=== PATIENT | female | born 1945 | race Caucasian/White ===

== ENCOUNTER 2016-11-19 04:11 | Inpatient (IN) | payer OTHER ==
[~2016-11-19] VITALS: Ht 157.5 cm; Wt 53.9 kg
[2016-11-19] MEDS ORDERED: PROPOFOL 1000 MG/ISO-OSM 100 ML IV PRN ×3 (04:23→16:00)
[2016-11-19] MEDS ORDERED: PROPOFOL 1000 MG/ISO-OSM 100 ML IV ONE ×3 (04:24→15:51)
[2016-11-19] MEDS ORDERED: VECURONIUM BROMIDE 10 MG/VIAL IVP ONE (04:30)
[2016-11-19] MEDS ORDERED: ETOMIDATE 2 MG/ML 10 ML VIAL IVP ONE (04:30)
[2016-11-19] MEDS ORDERED: ASPIRIN 81 MG CHEWABLE TABLET PO ONE (04:30)
[2016-11-19] MEDS ORDERED: NITROGLYCERIN 2% (1 GM=INCH) PACKET TP ONE (04:46)
[2016-11-19] MEDS ORDERED: LINA1TAB5 PO (04:50)
[2016-11-19] MEDS ORDERED: ATOR80TA PO (04:50)
[2016-11-19] MEDS ORDERED: OMEP20 PO (04:50)
[2016-11-19] MEDS ORDERED: BISO5TAB26 PO (04:50)
[2016-11-19] MEDS ORDERED: ASPI81 PO (04:50)
[2016-11-19] MEDS ORDERED: CLOP75 PO (04:50)
[2016-11-19] MEDS ORDERED: LISI-662 PO (04:50)
[2016-11-19] MEDS ORDERED: [UNRECOGNIZED DRUG - CODE] TP (04:50)
[2016-11-19] MEDS ORDERED: [UNRECOGNIZED DRUG - CODE] PO (04:50)
[2016-11-19] MEDS ORDERED: LABETALOL HCL 200 MG in DEXTROSE 5%-WATER 160 ML IV PRN ×2 (05:04→05:13)
[2016-11-19 05:05] LABS: ANION GAP 16 mmol/L (8-16); CALCIUM, TOTAL 9.5 mg/dL (8.8-10.5); CARBON DIOXIDE 20 mmol/L (22-29); CHLORIDE 103 mmol/L (98-107); CREATININE 1.22 mg/dL (0.60-1.30); GLOMERULAR FILTR. RATE CALC 44 mL/min (>60); POTASSIUM 4.9 mmol/L (3.5-5.1); SODIUM SERUM 139 mmol/L (136-145); UREA NITROGEN, BLOOD 21 mg/dL (7-18)
[2016-11-19 05:11] LABS: ALANINE AMINOTRANSFERASE 20 U/L (12-78); ASPARTATE AMINOTRANSFERASE 13 U/L (15-37); BILIRUBIN,TOTAL 0.2 mg/dL (0.1-1.0); CREATINE KINASE, TOTAL 67 U/L (26-192); TOTAL PROTEIN, SERUM 8.6 g/dL (6.4-8.2)
[2016-11-19 05:15] LABS: BASOPHILS % (AUTO) 0.5 % (0.0-2.0); EOSINOPHILS % (AUTO) 1.43 % (1.0-6.0); HEMOGLOBIN 15.5 g/dL (12.0-16.0); LYMPHOCYTES # (AUTO) 12.4 K/uL (1.0-4.8); LYMPHOCYTES % (AUTO) 58.8 % (22.0-44.0); MEAN CORPUSCULAR HGB CONC 32.3 G/dL (31.0-37.0); MEAN CORPUSCULAR VOLUME 90 fL (80-100); MONOCYTES # (AUTO) 1.5 K/uL (0.1-1.0); NEUTROPHILS # (AUTO) 6.8 K/uL (1.8-7.7); NEUTROPHILS % (AUTO) 32.3 % (40.0-70.0); RED BLOOD CELL COUNT(AUTO) 5.35 MIL/uL (4.00-5.20); RED CELL DISTRIBUTION WIDTH 16.1 % (11.5-14.5)
[2016-11-19 05:16] LABS: GLUCOSE,POINT OF CARE 433 MG/DL (70-110)
[2016-11-19 05:17] LABS: WHITE BLOOD COUNT (AUTO) 23.5 K/uL (4.5-11.0)
[2016-11-19 05:22] LABS: ABG OXYHEMOGLOBIN 93.5 % (94.0-100.0)
[2016-11-19 05:25] LABS: ABG A-A DIFF O2 552.5 mmHg (10-20.0); ABG BASE EXCESS -13.3 mmol/L (-2.0-3.0); ABG HCO3 14.2 mmol/L (22.0-26.0); ABG PCO2 53 mmHg (35-45); TEMPERATURE, FAHRENHEIT, BG 98.6 FAHREN (96.0-98.6)
[2016-11-19 05:26] LABS: ABG PH 7.106 (7.35-7.450)
[2016-11-19] MEDS ORDERED: CefTRIAXone 1 GM/DEXTROSE 50 ML IV ONE (05:30)
[2016-11-19] MEDS ORDERED: AZITHROMYCIN 500 MG/NS 250 ML IV ONE (05:30)
[2016-11-19 05:34] LABS: PLATELET COUNT (AUTO) 151 K/uL (150-450)
[2016-11-19] MEDS ORDERED: SODIUM BICARBONATE [ADULT] 8.4% 50 MEQ/50 ML SYRINGE IVP ONE ×2 (05:37→05:45)
[2016-11-19 05:40] LABS: B-TYPE NATRIURETIC PEPTIDE 2640 pg/mL (0-100)
[2016-11-19] MEDS ORDERED: INSULIN REGULAR, HUMAN 100 UNITS/ML IVP ONE (06:15)
[2016-11-19] MEDS ORDERED: FUROSEMIDE 40 MG/4 ML VIAL IVP ONE (06:15)
[2016-11-19] MEDS ORDERED: SODIUM CHLORIDE 0.9% 1,000 ML IV ONE ×2 (06:15→09:00)
[2016-11-19 06:18] LABS: GLUCOSE COMMENT 1 Repeated; GLUCOSE,POINT OF CARE 340 MG/DL (70-110)
[2016-11-19 06:42] LABS: GLUCOSE COMMENT 1 Doctor Notified; GLUCOSE,POINT OF CARE 306 MG/DL (70-110)
[2016-11-19 06:43] LABS: LACTIC ACID 5.8 mmol/L (0.4-2.0)
[2016-11-19] MEDS ORDERED: DEXTROSE 50%-WATER 25 GM/50 ML SYRINGE IVP PRN (07:45)
[2016-11-19] MEDS ORDERED: PHENYLEPHRINE 200 MG/D5%-WATER 250 ML IV PRN (07:45)
[2016-11-19] MEDS ORDERED: BISACODYL 10 MG RECTAL RECTAL SUPPOSITORY PR PRN (07:45)
[2016-11-19] MEDS ORDERED: MAGNESIUM HYDROXIDE SUSPENSION 30 ML UDCUP PO PRN (07:45)
[2016-11-19 07:54] LABS: REFLEX LACTIC ACID? YES YES
[2016-11-19] MEDS: HEPARIN SODIUM,PORCINE 5,000 UNITS/ML VIAL SQ SCH ×2 (08:09→16:00)
[2016-11-19] MEDS ORDERED: DOPamine HCL 400 MG/D5%-WATER 250 ML IV ONE (09:11)
[2016-11-19] MEDS: FUROSEMIDE 40 MG/4 ML VIAL IVP SCH ×2 (09:14→19:58)
[2016-11-19] MEDS: PANTOPRAZOLE SODIUM 40 MG/VIAL IVP SCH (09:14)
[2016-11-19] MEDS: DOPamine HCL 400 MG/D5%-WATER 250 ML IV SCH (09:19)
[2016-11-19] MEDS: ASPIRIN 81 MG CHEWABLE TABLET PO SCH (09:20)
[2016-11-19] MEDS: DOCUSATE SODIUM 100 MG CAPSULE PO SCH ×2 (09:20→19:58)
[2016-11-19 10:22] LABS: GLUCOSE COMMENT 1 Repeated; GLUCOSE,POINT OF CARE 99 MG/DL (70-110)
[2016-11-19] MEDS ORDERED: ACETAMINOPHEN 650 MG RECTAL SUPPOSITORY PR ONE (10:30)
[2016-11-19] MEDS: ACETAMINOPHEN 325 MG TABLET PO PRN ×2 (10:50→19:58)
[2016-11-19 13:15] LABS: ABG A-A DIFF O2 391.3 mmHg (10-20.0); ABG BASE EXCESS -1.2 mmol/L (-2.0-3.0); ABG OXYHEMOGLOBIN 98.4 % (94.0-100.0); ABG PCO2 25 mmHg (35-45); ABG PH 7.545 (7.35-7.450)
[2016-11-19 13:16] LABS: ALLEN TEST, BLOOD GAS Positive
[2016-11-19 13:27] LABS: GLUCOSE,POINT OF CARE 116 MG/DL (70-110)
[2016-11-19] MEDS ORDERED: LORazepam 2 MG/ML VIAL IVP ONE (13:30)
[2016-11-19] MEDS ORDERED: LORazepam 2 MG/ML VIAL ONE (13:33)
[2016-11-19] MEDS ORDERED: IBUPROFEN 100 MG/5 ML SUSPENSION UDCUP PO ONE (14:15)
[2016-11-19 15:28] LABS: APPEARANCE,URINE CLEAR (CLEAR); GLUCOSE, URINE (UA) 100 mg/dL (NEGATIVE); KETONES,URINE NEGATIVE (NEGATIVE); LEUKOCYTE ESTERASE ,URINE NEGATIVE (NEGATIVE); OCCULT BLOOD,URINE NEGATIVE (NEGATIVE); PH,URINE 5.5 (5.0-8.0); PROTEIN,URINE NEGATIVE (NEGATIVE)
[2016-11-19 15:29] LABS: ADD UA MICROSCOPIC YES; RBC,URINE None Seen /HPF (0-2); SQUAMOUS EPITHELIAL CELL,UR Few /LPF (None Seen); WBC,URINE 0-2 /HPF (0-5)
[2016-11-19 15:38] LABS: GLUCOSE,POINT OF CARE 127 MG/DL (70-110)
[2016-11-19] MEDS: PROPOFOL 1000 MG/ISO-OSM 100 ML IV PRN (16:00)
[2016-11-19 17:57] LABS: ABG A-A DIFF O2 86.8 mmHg (10-20.0); ABG BASE EXCESS -0.9 mmol/L (-2.0-3.0); ABG OXYHEMOGLOBIN 94.5 % (94.0-100.0); ABG PCO2 38 mmHg (35-45); ABG PH 7.413 (7.35-7.450)
[2016-11-19 17:58] LABS: ALLEN TEST, BLOOD GAS Positive
[2016-11-19] MEDS ORDERED: SODIUM CHLORIDE 0.9% 250 ML IV ONE (19:52)
[2016-11-19 20:00] VITALS: BP 111/69
[2016-11-20] VITALS: BP 131/68
[2016-11-20] MEDS: HEPARIN SODIUM,PORCINE 5,000 UNITS/ML VIAL SQ SCH ×3 (00:28→16:16)
[2016-11-20] MEDS: ACETAMINOPHEN 325 MG TABLET PO PRN ×3 (01:15→19:24)
[2016-11-20 04:00] VITALS: BP 114/71
[2016-11-20] MEDS: CefTRIAXone 1 GM/DEXTROSE 50 ML IV SCH (05:21)
[2016-11-20] MEDS: PROPOFOL 1000 MG/ISO-OSM 100 ML IV PRN ×2 (05:43→17:02)
[2016-11-20] MEDS: AZITHROMYCIN 500 MG/NS 250 ML IV SCH (05:44)
[2016-11-20 06:28] LABS: BASOPHILS % (AUTO) 0.4 % (0.0-2.0); EOSINOPHILS % (AUTO) 0.2 % (1.0-6.0); HEMATOCRIT 41.6 % (36-46); HEMOGLOBIN 13.2 g/dL (12.0-16.0); LYMPHOCYTES # (AUTO) 4.3 K/uL (1.0-4.8); LYMPHOCYTES % (AUTO) 24.6 % (22.0-44.0); MEAN CORPUSCULAR HEMOGLOBIN 27.9 pg (26.0-34.0); MEAN CORPUSCULAR HGB CONC 31.7 G/dL (31.0-37.0); MEAN CORPUSCULAR VOLUME 88 fL (80-100); MONOCYTES # (AUTO) 1.6 K/uL (0.1-1.0); MONOCYTES % (AUTO) 9.3 % (2.0-9.0); NEUTROPHILS # (AUTO) 11.6 K/uL (1.8-7.7); NEUTROPHILS % (AUTO) 65.5 % (40.0-70.0); PLATELET COUNT (AUTO) 126 K/uL (150-450); RED BLOOD CELL COUNT(AUTO) 4.73 MIL/uL (4.00-5.20); RED CELL DISTRIBUTION WIDTH 16.6 % (11.5-14.5); WHITE BLOOD COUNT (AUTO) 17.6 K/uL (4.5-11.0)
[2016-11-20 06:50] LABS: ALBUMIN 3.3 g/dL (3.4-5.0); BILIRUBIN,TOTAL 0.4 mg/dL (0.1-1.0); CALCIUM, TOTAL 8.5 mg/dL (8.8-10.5); CREATININE 0.97 mg/dL (0.60-1.30); MAGNESIUM 1.7 mg/dL (1.80-2.40); PHOSPHORUS 4.4 mg/dL (2.5-4.9); POTASSIUM 3.3 mmol/L (3.5-5.1); TOTAL PROTEIN, SERUM 7.1 g/dL (6.4-8.2)
[2016-11-20 07:34] LABS: THYROID STIMULATING HORMONE 0.22 uIU/mL (0.36-3.74)
[2016-11-20 08:00] VITALS: BP 104/64
[2016-11-20] MEDS ORDERED: POTASSIUM CHLORIDE 20 MEQ ER TABLET PO PRN (08:00)
[2016-11-20] MEDS ORDERED: MAGNESIUM SULFATE 2 GM in DEXTROSE 5%-WATER 50 ML IV ONE (08:00)
[2016-11-20] MEDS: ASPIRIN 81 MG CHEWABLE TABLET PO SCH (09:01)
[2016-11-20] MEDS: DOCUSATE SODIUM 100 MG CAPSULE PO SCH ×2 (09:01→20:14)
[2016-11-20] MEDS: PANTOPRAZOLE SODIUM 40 MG/VIAL IVP SCH (09:01)
[2016-11-20] MEDS: FUROSEMIDE 40 MG/4 ML VIAL IVP SCH ×2 (09:02→20:14)
[2016-11-20] MEDS: DOPamine HCL 400 MG/D5%-WATER 250 ML IV SCH (10:07)
[2016-11-20 11:29] LABS: ABG A-A DIFF O2 83.3 mmHg (10-20.0); ABG BASE EXCESS 3.2 mmol/L (-2.0-3.0); ABG HCO3 27.3 mmol/L (22.0-26.0); ABG OXYHEMOGLOBIN 95.4 % (94.0-100.0); ABG PCO2 39 mmHg (35-45); ABG PH 7.456 (7.35-7.450); ALLEN TEST, BLOOD GAS Positive; TEMPERATURE, FAHRENHEIT, BG 100.1 FAHREN (96.0-98.6)
[2016-11-20 12:00] VITALS: BP 110/72
[2016-11-20 13:35] LABS: PROTHROMBIN TIME 10.6 SEC (9.4-11.6)
[2016-11-20 16:00] VITALS: BP 126/77
[2016-11-20] MEDS ORDERED: SODIUM CHLORIDE 0.9% 250 ML IV ONE (17:53)
[2016-11-20 20:00] VITALS: BP 109/67
[2016-11-21] VITALS: BP 97/61
[2016-11-21] MEDS ORDERED: SODIUM CHLORIDE 0.9% 250 ML IV ONE (00:08)
[2016-11-21] MEDS: HEPARIN SODIUM,PORCINE 5,000 UNITS/ML VIAL SQ SCH ×4 (00:12→23:56)
[2016-11-21] MEDS: ACETAMINOPHEN 325 MG TABLET PO PRN ×2 (00:14→22:13)
[2016-11-21 04:00] VITALS: BP 101/57
[2016-11-21] MEDS ORDERED: PNEUMOCOCCAL VACCINE POLYVALENT 0.5 ML VIAL [PPSV23] IM ONE (04:45)
[2016-11-21] MEDS: CefTRIAXone 1 GM/DEXTROSE 50 ML IV SCH (04:59)
[2016-11-21] MEDS: AZITHROMYCIN 500 MG/NS 250 ML IV SCH (05:00)
[2016-11-21 05:21] LABS: BASOPHILS % (AUTO) 0.4 % (0.0-2.0); EOSINOPHILS % (AUTO) 0.8 % (1.0-6.0); HEMATOCRIT 36.2 % (36-46); HEMOGLOBIN 11.5 g/dL (12.0-16.0); LYMPHOCYTES # (AUTO) 2.6 K/uL (1.0-4.8); LYMPHOCYTES % (AUTO) 19.7 % (22.0-44.0); MEAN CORPUSCULAR HEMOGLOBIN 28.1 pg (26.0-34.0); MEAN CORPUSCULAR HGB CONC 31.8 G/dL (31.0-37.0); MEAN CORPUSCULAR VOLUME 88 fL (80-100); MONOCYTES # (AUTO) 1.3 K/uL (0.1-1.0); MONOCYTES % (AUTO) 9.4 % (2.0-9.0); NEUTROPHILS # (AUTO) 9.3 K/uL (1.8-7.7); NEUTROPHILS % (AUTO) 69.7 % (40.0-70.0); PLATELET COUNT (AUTO) 115 K/uL (150-450); RED CELL DISTRIBUTION WIDTH 16.4 % (11.5-14.5); WHITE BLOOD COUNT (AUTO) 13.4 K/uL (4.5-11.0)
[2016-11-21 05:49] LABS: BILIRUBIN,TOTAL 0.4 mg/dL (0.1-1.0); CALCIUM, TOTAL 8.7 mg/dL (8.8-10.5); CREATININE 1.14 mg/dL (0.60-1.30); MAGNESIUM 2.1 mg/dL (1.80-2.40); POTASSIUM 3.5 mmol/L (3.5-5.1); TOTAL PROTEIN, SERUM 6.7 g/dL (6.4-8.2)
[2016-11-21] MEDS: PROPOFOL 1000 MG/ISO-OSM 100 ML IV PRN (07:36)
[2016-11-21 07:46] LABS: HEMOGLOBIN A1C 5.9 % (4.5-6.2)
[2016-11-21 08:00] VITALS: BP 106/64
[2016-11-21] MEDS: DOPamine HCL 400 MG/D5%-WATER 250 ML IV SCH (09:08)
[2016-11-21] MEDS: PANTOPRAZOLE SODIUM 40 MG/VIAL IVP SCH (09:15)
[2016-11-21] MEDS: DOCUSATE SODIUM 100 MG CAPSULE PO SCH ×2 (09:15→20:45)
[2016-11-21] MEDS: ASPIRIN 81 MG CHEWABLE TABLET PO SCH (09:15)
[2016-11-21] MEDS: METOCLOPRAMIDE HCL 5 MG/ML 2 ML VIAL IVP SCH ×2 (09:15→21:56)
[2016-11-21] MEDS: FUROSEMIDE 40 MG/4 ML VIAL IVP SCH ×2 (09:16→21:55)
[2016-11-21] MEDS: POTASSIUM CHL 10 MEQ/WATER 50 ML IV PRN ×2 (09:16→12:23)
[2016-11-21 09:56] LABS: ABG A-A DIFF O2 80.6 mmHg (10-20.0); ABG BASE EXCESS 3.7 mmol/L (-2.0-3.0); ABG HCO3 27.7 mmol/L (22.0-26.0); ABG OXYHEMOGLOBIN 95.9 % (94.0-100.0); ABG PCO2 39 mmHg (35-45); ABG PH 7.469 (7.35-7.450); ALLEN TEST, BLOOD GAS Positive; TEMPERATURE, FAHRENHEIT, BG 100.3 FAHREN (96.0-98.6)
[2016-11-21 11:50] LABS: ABG A-A DIFF O2 93.3 mmHg (10-20.0); ABG BASE EXCESS 4.3 mmol/L (-2.0-3.0); ABG HCO3 28.4 mmol/L (22.0-26.0); ABG OXYHEMOGLOBIN 95.1 % (94.0-100.0); ABG PCO2 36 mmHg (35-45); ABG PH 7.501 (7.35-7.450); ALLEN TEST, BLOOD GAS Positive; TEMPERATURE, FAHRENHEIT, BG 98.6 FAHREN (96.0-98.6)
[2016-11-21 12:00] VITALS: BP 125/68
[2016-11-21 13:51] LABS: ABG A-A DIFF O2 93.3 mmHg (10-20.0); ABG BASE EXCESS 4.6 mmol/L (-2.0-3.0); ABG HCO3 28.5 mmol/L (22.0-26.0); ABG OXYHEMOGLOBIN 96.3 % (94.0-100.0); ABG PCO2 38 mmHg (35-45); ABG PH 7.489 (7.35-7.450); ALLEN TEST, BLOOD GAS Positive; TEMPERATURE, FAHRENHEIT, BG 99.7 FAHREN (96.0-98.6)
[2016-11-21 15:18] LABS: GLUCOSE,POINT OF CARE 113 MG/DL (70-110)
[2016-11-21 16:00] VITALS: BP 132/56
[2016-11-21 20:00] VITALS: BP 135/66
[2016-11-22] VITALS (7 sets, daily range): BP systolic 108–131; BP diastolic 59–72
[2016-11-22] MEDS ORDERED: SODIUM CHLORIDE 0.9% 250 ML IV ONE (00:20)
[2016-11-22] MEDS: CefTRIAXone 1 GM/DEXTROSE 50 ML IV SCH (04:37)
[2016-11-22 05:03] LABS: GLUCOSE,POINT OF CARE 143 MG/DL (70-110)
[2016-11-22 05:03] LABS: GLUCOSE,POINT OF CARE 117 MG/DL (70-110)
[2016-11-22] MEDS: AZITHROMYCIN 500 MG/NS 250 ML IV SCH (05:09)
[2016-11-22 05:26] LABS: BASOPHILS # (AUTO) 0.03 K/uL (0.00-0.20); BASOPHILS % (AUTO) 0.2 % (0.0-2.0); EOSINOPHILS # (AUTO) 0.07 K/uL (0.00-0.70); HEMATOCRIT 36.8 % (36-46); HEMOGLOBIN 12.1 g/dL (12.0-16.0); LYMPHOCYTES # (AUTO) 2.2 K/uL (1.0-4.8); LYMPHOCYTES % (AUTO) 16.7 % (22.0-44.0); MEAN CORPUSCULAR HEMOGLOBIN 29.1 pg (26.0-34.0); MEAN CORPUSCULAR VOLUME 88 fL (80-100); MONOCYTES # (AUTO) 1.3 K/uL (0.1-1.0); MONOCYTES % (AUTO) 9.8 % (2.0-9.0); NEUTROPHILS # (AUTO) 9.6 K/uL (1.8-7.7); NEUTROPHILS % (AUTO) 72.8 % (40.0-70.0); PLATELET COUNT (AUTO) 125 K/uL (150-450); RED BLOOD CELL COUNT(AUTO) 4.17 MIL/uL (4.00-5.20); RED CELL DISTRIBUTION WIDTH 15.7 % (11.5-14.5); WHITE BLOOD COUNT (AUTO) 13.2 K/uL (4.5-11.0)
[2016-11-22 05:31] LABS: CREATININE 1.05 mg/dL (0.60-1.30); POTASSIUM 3.5 mmol/L (3.5-5.1)
[2016-11-22 07:17] LABS: GLUCOSE,POINT OF CARE 109 MG/DL (70-110)
[2016-11-22] MEDS: HEPARIN SODIUM,PORCINE 5,000 UNITS/ML VIAL SQ SCH ×2 (09:03→16:40)
[2016-11-22] MEDS: PANTOPRAZOLE SODIUM 40 MG/VIAL IVP SCH (09:04)
[2016-11-22] MEDS: FUROSEMIDE 40 MG/4 ML VIAL IVP SCH ×2 (09:04→20:22)
[2016-11-22] MEDS: METOCLOPRAMIDE HCL 5 MG/ML 2 ML VIAL IVP SCH ×2 (09:05→20:22)
[2016-11-22] MEDS: ASPIRIN 81 MG CHEWABLE TABLET PO SCH (09:05)
[2016-11-22] MEDS: DOCUSATE SODIUM 100 MG CAPSULE PO SCH ×2 (09:06→20:22)
[2016-11-22] MEDS: CARVEDILOL 3.125 MG TABLET PO SCH ×2 (09:11→20:22)
[2016-11-22 10:48] LABS: TEMPERATURE, FAHRENHEIT, BG 99.6 FAHREN (96.0-98.6)
[2016-11-22 10:52] LABS: ABG A-A DIFF O2 76.4 mmHg (10-20.0); ABG BASE EXCESS 1.8 mmol/L (-2.0-3.0); ABG HCO3 26.4 mmol/L (22.0-26.0); ABG OXYHEMOGLOBIN 96.8 % (94.0-100.0); ABG PCO2 35 mmHg (35-45); ABG PH 7.474 (7.35-7.450)
[2016-11-22 10:53] LABS: ALLEN TEST, BLOOD GAS Positive
[2016-11-22] MEDS: VALSARTAN 40 MG TABLET PO SCH ×2 (10:56→20:37)
[2016-11-22] MEDS: POTASSIUM CHL 10 MEQ/WATER 50 ML IV PRN ×3 (12:07→14:51)
[2016-11-22] MEDS: INSULIN REGULAR, HUMAN 100 UNITS/ML SQ PRN (18:10)
[2016-11-22] MEDS: ACETAMINOPHEN 325 MG TABLET PO PRN (20:08)
[2016-11-23] VITALS (7 sets, daily range): BP systolic 101–128; BP diastolic 56–66
[2016-11-23] MEDS: HEPARIN SODIUM,PORCINE 5,000 UNITS/ML VIAL SQ SCH ×4 (00:33→23:34)
[2016-11-23] MEDS: CefTRIAXone 1 GM/DEXTROSE 50 ML IV SCH (05:23)
[2016-11-23] MEDS: AZITHROMYCIN 500 MG/NS 250 ML IV SCH (06:30)
[2016-11-23] MEDS: INSULIN REGULAR, HUMAN 100 UNITS/ML SQ PRN (06:37)
[2016-11-23 07:03] LABS: BASOPHILS % (AUTO) 0.5 % (0.0-2.0); EOSINOPHILS % (AUTO) 1.1 % (1.0-6.0); HEMATOCRIT 36.7 % (36-46); HEMOGLOBIN 11.6 g/dL (12.0-16.0); LYMPHOCYTES # (AUTO) 2.9 K/uL (1.0-4.8); LYMPHOCYTES % (AUTO) 26.3 % (22.0-44.0); MEAN CORPUSCULAR HEMOGLOBIN 27.9 pg (26.0-34.0); MEAN CORPUSCULAR HGB CONC 31.6 G/dL (31.0-37.0); MEAN CORPUSCULAR VOLUME 88 fL (80-100); MONOCYTES # (AUTO) 1.1 K/uL (0.1-1.0); MONOCYTES % (AUTO) 10.2 % (2.0-9.0); NEUTROPHILS # (AUTO) 6.8 K/uL (1.8-7.7); NEUTROPHILS % (AUTO) 61.9 % (40.0-70.0); PLATELET COUNT (AUTO) 125 K/uL (150-450); RED BLOOD CELL COUNT(AUTO) 4.15 MIL/uL (4.00-5.20); RED CELL DISTRIBUTION WIDTH 15.3 % (11.5-14.5); WHITE BLOOD COUNT (AUTO) 11.1 K/uL (4.5-11.0)
[2016-11-23 07:37] LABS: GLUCOSE,POINT OF CARE 197 MG/DL (70-110)
[2016-11-23 07:37] LABS: GLUCOSE,POINT OF CARE 139 MG/DL (70-110)
[2016-11-23 07:39] LABS: ALBUMIN 2.9 g/dL (3.4-5.0); BILIRUBIN,TOTAL 0.4 mg/dL (0.1-1.0); CREATININE 0.94 mg/dL (0.60-1.30); MAGNESIUM 1.8 mg/dL (1.80-2.40); POTASSIUM 3.5 mmol/L (3.5-5.1); TOTAL PROTEIN, SERUM 7.3 g/dL (6.4-8.2)
[2016-11-23 07:42] LABS: GLUCOSE COMMENT 1 Received Meds; GLUCOSE,POINT OF CARE 146 MG/DL (70-110)
[2016-11-23 08:01] LABS: GLUCOSE,POINT OF CARE 111 MG/DL (70-110)
[2016-11-23] MEDS: FUROSEMIDE 40 MG/4 ML VIAL IVP SCH ×2 (09:04→20:17)
[2016-11-23] MEDS: PANTOPRAZOLE SODIUM 40 MG/VIAL IVP SCH (09:05)
[2016-11-23] MEDS: CARVEDILOL 3.125 MG TABLET PO SCH (09:05)
[2016-11-23] MEDS: ASPIRIN 81 MG CHEWABLE TABLET PO SCH (09:05)
[2016-11-23] MEDS: METOCLOPRAMIDE HCL 5 MG/ML 2 ML VIAL IVP SCH (09:05)
[2016-11-23] MEDS: DOCUSATE SODIUM 100 MG CAPSULE PO SCH ×2 (09:06→20:17)
[2016-11-23] MEDS: VALSARTAN 40 MG TABLET PO SCH ×2 (09:14→21:33)
[2016-11-23] MEDS: INSULIN ASPART 100 UNITS/ML SQ PRN ×2 (11:58→18:40)
[2016-11-23] MEDS: POTASSIUM CHL 10 MEQ/WATER 50 ML IV PRN ×3 (13:02→16:38)
[2016-11-23 18:37] LABS: GLUCOSE COMMENT 1 Received Meds; GLUCOSE,POINT OF CARE 177 MG/DL (70-110)
[2016-11-23 18:37] LABS: GLUCOSE,POINT OF CARE 116 MG/DL (70-110)
[2016-11-23] MEDS: CARVEDILOL 6.25 MG TABLET PO SCH (21:33)
[2016-11-24] VITALS (7 sets, daily range): BP systolic 98–123; BP diastolic 54–68
[2016-11-24] MEDS: CefTRIAXone 1 GM/DEXTROSE 50 ML IV SCH (05:06)
[2016-11-24] MEDS: AZITHROMYCIN 500 MG/NS 250 ML IV SCH (05:50)
[2016-11-24] MEDS: INSULIN ASPART 100 UNITS/ML SQ PRN ×3 (06:31→21:30)
[2016-11-24] MEDS: HEPARIN SODIUM,PORCINE 5,000 UNITS/ML VIAL SQ SCH ×2 (08:15→17:33)
[2016-11-24] MEDS: FUROSEMIDE 40 MG/4 ML VIAL IVP SCH ×2 (08:16→20:01)
[2016-11-24] MEDS: DOCUSATE SODIUM 100 MG CAPSULE PO SCH ×2 (08:17→21:00)
[2016-11-24] MEDS: ASPIRIN 81 MG CHEWABLE TABLET PO SCH (08:17)
[2016-11-24] MEDS: PANTOPRAZOLE SODIUM 40 MG DR TABLET PO SCH (08:18)
[2016-11-24] MEDS: CARVEDILOL 6.25 MG TABLET PO SCH ×2 (08:18→21:25)
[2016-11-24] MEDS: VALSARTAN 40 MG TABLET PO SCH ×2 (08:19→21:24)
[2016-11-24 22:47] LABS: GLUCOSE COMMENT 1 Received Meds; GLUCOSE,POINT OF CARE 140 MG/DL (70-110)
[2016-11-24 22:47] LABS: GLUCOSE COMMENT 1 Received Meds; GLUCOSE,POINT OF CARE 171 MG/DL (70-110)
[2016-11-25] MEDS: IBUPROFEN 400 MG TABLET PO PRN ×2 (00:32→20:29)
[2016-11-25 04:43] VITALS: BP 108/57
[2016-11-25] MEDS: CefTRIAXone 1 GM/DEXTROSE 50 ML IV SCH (04:51)
[2016-11-25] MEDS: AZITHROMYCIN 500 MG/NS 250 ML IV SCH (06:10)
[2016-11-25] MEDS: INSULIN ASPART 100 UNITS/ML SQ PRN ×3 (06:12→17:26)
[2016-11-25 06:27] LABS: BASOPHILS % (AUTO) 0.3 % (0.0-2.0); EOSINOPHILS % (AUTO) 1.6 % (1.0-6.0); HEMATOCRIT 35.8 % (36-46); HEMOGLOBIN 11.2 g/dL (12.0-16.0); LYMPHOCYTES # (AUTO) 3.4 K/uL (1.0-4.8); LYMPHOCYTES % (AUTO) 34.2 % (22.0-44.0); MEAN CORPUSCULAR HEMOGLOBIN 27.8 pg (26.0-34.0); MEAN CORPUSCULAR HGB CONC 31.2 G/dL (31.0-37.0); MEAN CORPUSCULAR VOLUME 89 fL (80-100); MONOCYTES # (AUTO) 1.4 K/uL (0.1-1.0); MONOCYTES % (AUTO) 13.7 % (2.0-9.0); NEUTROPHILS % (AUTO) 50.2 % (40.0-70.0); PLATELET COUNT (AUTO) 150 K/uL (150-450); RED BLOOD CELL COUNT(AUTO) 4.02 MIL/uL (4.00-5.20); RED CELL DISTRIBUTION WIDTH 15.6 % (11.5-14.5)
[2016-11-25 07:03] LABS: CALCIUM, TOTAL 9.4 mg/dL (8.8-10.5); CREATININE 1.19 mg/dL (0.60-1.30); MAGNESIUM 1.9 mg/dL (1.80-2.40); POTASSIUM 3.8 mmol/L (3.5-5.1)
[2016-11-25 07:05] VITALS: BP 2/61
[2016-11-25 08:40] VITALS: BP 105/58
[2016-11-25] MEDS: CARVEDILOL 6.25 MG TABLET PO SCH ×2 (08:50→20:29)
[2016-11-25] MEDS: ASPIRIN 81 MG CHEWABLE TABLET PO SCH (08:50)
[2016-11-25] MEDS: PANTOPRAZOLE SODIUM 40 MG DR TABLET PO SCH (08:50)
[2016-11-25] MEDS: DOCUSATE SODIUM 100 MG CAPSULE PO SCH ×3 (08:51→20:54)
[2016-11-25] MEDS: HEPARIN SODIUM,PORCINE 5,000 UNITS/ML VIAL SQ SCH ×4 (08:51→23:51)
[2016-11-25 11:42] VITALS: BP 96/61
[2016-11-25] MEDS: FUROSEMIDE 40 MG/4 ML VIAL IVP SCH ×3 (11:45→20:53)
[2016-11-25] MEDS: VALSARTAN 40 MG TABLET PO SCH ×2 (11:46→20:29)
[2016-11-25 15:59] VITALS: BP 110/53
[2016-11-25 17:33] LABS: GLUCOSE,POINT OF CARE 141 MG/DL (70-110)
[2016-11-25 17:33] LABS: GLUCOSE COMMENT 1 Received Meds; GLUCOSE,POINT OF CARE 174 MG/DL (70-110)
[2016-11-25 19:02] LABS: GLUCOSE COMMENT 1 Received Meds; GLUCOSE,POINT OF CARE 158 MG/DL (70-110)
[2016-11-25 19:36] LABS: GLUCOSE COMMENT 1 Received Meds; GLUCOSE,POINT OF CARE 145 MG/DL (70-110)
[2016-11-25 20:02] VITALS: BP 123/63
[2016-11-26 00:03] VITALS: BP 110/57
[2016-11-26] MEDS: CefTRIAXone 1 GM/DEXTROSE 50 ML IV SCH (04:17)
[2016-11-26] MEDS: AZITHROMYCIN 500 MG/NS 250 ML IV SCH (05:12)
[2016-11-26 05:29] VITALS: BP 115/59
[2016-11-26 07:03] LABS: BASOPHILS % (AUTO) 0.4 % (0.0-2.0); EOSINOPHILS % (AUTO) 1.9 % (1.0-6.0); HEMATOCRIT 37.2 % (36-46); HEMOGLOBIN 11.7 g/dL (12.0-16.0); LYMPHOCYTES # (AUTO) 2.7 K/uL (1.0-4.8); LYMPHOCYTES % (AUTO) 30.6 % (22.0-44.0); MEAN CORPUSCULAR HEMOGLOBIN 27.8 pg (26.0-34.0); MEAN CORPUSCULAR HGB CONC 31.5 G/dL (31.0-37.0); MEAN CORPUSCULAR VOLUME 88 fL (80-100); MONOCYTES # (AUTO) 1.1 K/uL (0.1-1.0); MONOCYTES % (AUTO) 12.4 % (2.0-9.0); NEUTROPHILS # (AUTO) 4.8 K/uL (1.8-7.7); NEUTROPHILS % (AUTO) 54.7 % (40.0-70.0); PLATELET COUNT (AUTO) 162 K/uL (150-450); RED BLOOD CELL COUNT(AUTO) 4.21 MIL/uL (4.00-5.20); RED CELL DISTRIBUTION WIDTH 15.4 % (11.5-14.5); WHITE BLOOD COUNT (AUTO) 8.8 K/uL (4.5-11.0)
[2016-11-26 07:22] LABS: GLUCOSE,POINT OF CARE 168 MG/DL (70-110)
[2016-11-26 07:22] LABS: GLUCOSE COMMENT 1 Received Meds; GLUCOSE,POINT OF CARE 163 MG/DL (70-110)
[2016-11-26 07:23] LABS: CALCIUM, TOTAL 9.4 mg/dL (8.8-10.5); CREATININE 1.01 mg/dL (0.60-1.30); POTASSIUM 4.1 mmol/L (3.5-5.1)
[2016-11-26] MEDS: HEPARIN SODIUM,PORCINE 5,000 UNITS/ML VIAL SQ SCH ×2 (08:00→16:00)
[2016-11-26 08:05] VITALS: BP 101/55
[2016-11-26] MEDS: DOCUSATE SODIUM 100 MG CAPSULE PO SCH (08:40)
[2016-11-26] MEDS: ASPIRIN 81 MG CHEWABLE TABLET PO SCH (08:40)
[2016-11-26] MEDS: FUROSEMIDE 40 MG/4 ML VIAL IVP SCH (08:40)
[2016-11-26] MEDS: PANTOPRAZOLE SODIUM 40 MG DR TABLET PO SCH (08:41)
[2016-11-26] MEDS ORDERED: VALSARTAN 80 MG TABLET PO SCH (09:00)
[2016-11-26] MEDS ORDERED: CARVEDILOL 12.5 MG TABLET PO SCH (09:00)
[2016-11-26 11:27] VITALS: BP 98/51
[2016-11-26] MEDS ORDERED: AZITH500IV IV (12:50)
[2016-11-26] MEDS ORDERED: CARV12 PO (12:51)
[2016-11-26] MEDS ORDERED: FURO40I IV (12:57)
[2016-11-26] MEDS ORDERED: CEFT1PB IV (12:57)
[2016-11-26] MEDS ORDERED: HEPA500017 SQ (13:00)
[2016-11-26] MEDS ORDERED: PANT40TA25 PO (13:01)
[2016-11-26] MEDS ORDERED: DSS100 PO (13:01)
[2016-11-26] MEDS ORDERED: VALS80TA2 PO (13:02)
[2016-11-26] MEDS ORDERED: ACET650S14 PR (13:03)
[2016-11-26] MEDS ORDERED: ACET-2247 PO (13:03)
[2016-11-26] MEDS ORDERED: BISA10S PR (13:04)
[2016-11-26 15:31] VITALS: BP 122/68
[2016-11-26] MEDS: ACETAMINOPHEN 325 MG TABLET PO PRN (16:38)
[2016-11-26 18:18] LABS: GLUCOSE COMMENT 1 Received Meds; GLUCOSE,POINT OF CARE 205 MG/DL (70-110)
[2016-11-26 20:06] VITALS: BP 122/66
[2016-11-27 19:46] LABS: GLUCOSE,POINT OF CARE 123 MG/DL (70-110)
[2016-11-28 13:42] LABS: GLUCOSE,POINT OF CARE 155 MG/DL (70-110)
[2016-11-28 13:48] LABS: GLUCOSE,POINT OF CARE 137 MG/DL (70-110)
== END 2016-11-26 20:15 | disposition short-term general hospital (02) | DRG 871 ==
LOC: EMS 04:14 → ICU 15:32 → 5S 11-22 15:03
PROVIDERS: ADMIT Internal Medicine; ATTEND Internal Medicine
PROC: 02HV33Z Insertion of Infusion Device into Superior Vena Cava, Percutaneous Approach (ICD-10-PCS; 2016-11-20)
PROC: B548ZZA Ultrasonography of Superior Vena Cava, Guidance (ICD-10-PCS; 2016-11-20)
PROC: 0BH18EZ Insertion of Endotracheal Airway into Trachea, Via Natural or Artificial Opening Endoscopic (ICD-10-PCS; principal; 2016-11-21)
PROC: 5A1945Z Respiratory Ventilation, 24-96 Consecutive Hours (ICD-10-PCS; 2016-11-21)
DX: A41.9 Sepsis, unspecified organism (principal); J96.01 Acute respiratory failure with hypoxia; J96.02 Acute respiratory failure with hypercapnia; R65.21 Severe sepsis with septic shock; I50.43 Acute on chronic combined systolic (congestive) and diastolic (congestive) heart failure; Z99.11 Dependence on respirator [ventilator] status; J44.9 Chronic obstructive pulmonary disease, unspecified; I11.0 Hypertensive heart disease with heart failure; I25.5 Ischemic cardiomyopathy; E87.6 Hypokalemia; I25.10 Atherosclerotic heart disease of native coronary artery without angina pectoris; E11.65 Type 2 diabetes mellitus with hyperglycemia; E78.5 Hyperlipidemia, unspecified; Z95.1 Presence of aortocoronary bypass graft; Z79.4 Long term (current) use of insulin; Z91.19 Patient's noncompliance with other medical treatment and regimen; Z79.82 Long term (current) use of aspirin; Z79.02 Long term (current) use of antithrombotics/antiplatelets; Z79.899 Other long term (current) drug therapy; Z83.3 Family history of diabetes mellitus; Z82.49 Family history of ischemic heart disease and other diseases of the circulatory system
CPT/HCPCS: 31500; 36245; 36569; 51702; 76937; 80307; 82805; 82962; 83036; 83605; 83735; 84100; 84132; 84145; 84443; 87040; 87070; 87081; 87205; 90471; 92610; 93005; 93306; 94002; 94003; 96365; 96366; 96368; 96375; 97162; 99291; C9113; J0456; J0696; J1265; J1644; J1815; J1940; J2060; J2370; J2704; J2765; J3475; J3480; J3490; J7030; J7050; J7060

== ENCOUNTER 2021-10-10 21:04 | Emergency (ER) | payer MEDICARE, OTHER ==
[~2021-10-10] VITALS: Ht 147.3 cm; Wt 43.2 kg
[~2021-10-10 21:04] MED LIST: ACET-2247 PO; ACET650S14 PR; ASPI-1450 PO; ATOR80TA PO; AZIT500V18 IV; BISA10SU11 PR; BISO5TAB33 PO; CARV12 PO; CEFT1PB IV; CLOP75TA60 PO; DSS100 PO; FURO10VI34 IV; HEPA500018 SQ; LINA1TAB5 PO; LISI-894 PO; OMEP20 PO; PANT-31 PO; VALS80TA2 PO; [UNRECOGNIZED DRUG - CODE] PO; [UNRECOGNIZED DRUG - CODE] TP
[2021-10-10 22:01] LABS: BASOPHILS % (AUTO) 0.6 % (0.0-2.0); EOSINOPHILS % (AUTO) 0.9 % (1.0-6.0); HEMATOCRIT 35.2 % (36-46); HEMOGLOBIN 11.6 g/dL (12.0-16.0); LYMPHOCYTES # (AUTO) 3.3 K/uL (1.0-4.8); LYMPHOCYTES % (AUTO) 32.2 % (22.0-44.0); MEAN CORPUSCULAR HEMOGLOBIN 29.1 pg (26.0-34.0); MEAN CORPUSCULAR VOLUME 88 fL (80-100); MONOCYTES # (AUTO) 1.1 K/uL (0.1-1.0); MONOCYTES % (AUTO) 10.3 % (2.0-9.0); NEUTROPHILS # (AUTO) 5.7 K/uL (1.8-7.7); PLATELET COUNT (AUTO) 195 K/uL (150-450); RED CELL DISTRIBUTION WIDTH 14.5 % (11.5-14.5)
[2021-10-10 22:07] LABS: CALCIUM, TOTAL 9.6 mg/dL (8.8-10.5); CREATININE 1.36 mg/dL (0.60-1.30)
[2021-10-10 22:11] LABS: PROTHROMBIN TIME 10.9 SEC (9.4-11.6)
[2021-10-10 22:13] LABS: ALBUMIN 3.2 g/dL (3.4-5.0); BILIRUBIN,TOTAL 0.3 mg/dL (0.1-1.0); TOTAL PROTEIN, SERUM 8.3 g/dL (6.4-8.2)
[2021-10-10 23:08] LABS: APPEARANCE,URINE CLEAR (CLEAR); BILIRUBIN,URINE NEGATIVE (NEGATIVE); GLUCOSE, URINE (UA) >=1000 mg/dL (NEGATIVE); LEUKOCYTE ESTERASE ,URINE NEGATIVE (NEGATIVE); NITRATE,URINE NEGATIVE (NEGATIVE); OCCULT BLOOD,URINE NEGATIVE (NEGATIVE); PROTEIN,URINE NEGATIVE (NEGATIVE); SPECIFIC GRAVITIY, URINE 1.017 (1.003-1.030); UROBILINOGEN,URINE <=1.0 mg/dL (<=1.0)
[2021-10-10] MEDS ORDERED: SODIUM CHLORIDE 0.9% 500 ML IV ONE (23:15)
[2021-10-10 23:21] LABS: SQUAMOUS EPITHELIAL CELL,UR Few /LPF (None Seen)
[2021-10-10 23:22] LABS: BACTERIA,URINE Few /HPF (None Seen); RBC,URINE 0-2 /HPF (0-2); WBC,URINE 0-2 /HPF (0-5)
[2021-10-10 23:56] VITALS: BP 106/57
[2021-10-11] MEDS ORDERED: SODIUM CHLORIDE 0.9% 500 ML IV ONE (00:15)
== END 2021-10-11 01:33 | disposition home or self-care (01) ==
LOC: EMS 21:31
DX: E86.0 Dehydration (principal); R53.81 Other malaise; E11.9 Type 2 diabetes mellitus without complications; E78.00 Pure hypercholesterolemia, unspecified; I10 Essential (primary) hypertension; F17.210 Nicotine dependence, cigarettes, uncomplicated; Z86.79 Personal history of other diseases of the circulatory system
CPT/HCPCS: 36415; 71045; 80053; 81001; 82550; 83880; 84484; 85025; 85610; 85730; 93005; 96360; 96361; 99285; J7040; 81003

== ENCOUNTER 2023-09-01 13:38 | Emergency (ER) | payer MEDICARE ==
[~2023-09-01] VITALS: Ht 157.5 cm; Wt 54.5 kg
[2023-09-01 13:51] VITALS: BP 107/59; PULSE 80; RESP 18; TEMP 98
[2023-09-01 14:11] LABS: GLUCOMETER DEV NAME(LOC) ER.6; GLUCOSE,POINT OF CARE 128 MG/DL (70-110)
[2023-09-01 16:20] LABS: APPEARANCE,URINE CLEAR (CLEAR); BILIRUBIN,URINE NEGATIVE (NEGATIVE); COLOR,URINE LIGHT YELLOW (YELLOW); GLUCOSE, URINE (UA) NEGATIVE (NEGATIVE); KETONES,URINE NEGATIVE (NEGATIVE); LEUKOCYTE ESTERASE ,URINE NEGATIVE (NEGATIVE); NITRATE,URINE NEGATIVE (NEGATIVE); OCCULT BLOOD,URINE TRACE (NEGATIVE); PH,URINE 6.5 (5.0-8.0); PROTEIN,URINE 100-200,SEE CONFIRM mg/dL (NEGATIVE); SPECIFIC GRAVITIY, URINE 1.012 (1.003-1.030); UROBILINOGEN,URINE <=1.0 mg/dL (<=1.0)
[2023-09-01 16:28] LABS: BACTERIA,URINE Few /HPF (None Seen); SQUAMOUS EPITHELIAL CELL,UR Few /LPF (None Seen); WBC,URINE 0-2 /HPF (0-5)
[2023-09-01 16:31] LABS: SULFOSALICYLIC ACID,URINE 2+ (Negative)
[2023-09-01] MEDS ORDERED: LIDO700A15 TP (16:32)
[2023-09-01] MEDS ORDERED: ACET-3385 PO (16:32)
[2023-09-01] MEDS: ACETAMINOPHEN 500 MG TABLET PO ONE (16:37)
[2023-09-01] MEDS: LIDOCAINE 5% TRANSDERMAL PATCH TD ONE (17:17)
== END 2023-09-01 17:24 | disposition home or self-care (01) ==
LOC: EMS 13:38
DX: M54.50 Low back pain, unspecified (principal); E11.9 Type 2 diabetes mellitus without complications; E78.00 Pure hypercholesterolemia, unspecified; I11.9 Hypertensive heart disease without heart failure; F17.210 Nicotine dependence, cigarettes, uncomplicated
CPT/HCPCS: 81001; 81002; 82962; 99283